=== PATIENT | female | born 1945 | race Caucasian/White ===

== ENCOUNTER 2020-04-05 09:20 | Emergency (ER) | payer OTHER ==
[~2020-04-05] VITALS: Ht 180.3 cm; Wt 64.0 kg
--- NOTE | 2020-04-05 09:24 | NUR ---
PT BIB AMBULANCE AFTER EXPERIENCING EPISODE OF DIZZINESS AND HEART BEATING FAST. MD BEDSIDE.
--- NOTE | 2020-04-05 09:35 | NUR ---
MEDS TRAMADOL 50 MG, 1 TAB 2 TO 3 TIMES DAILY PRN PAIN. CARBAMAZEPINE 300 MG 1 TABLET DAILY.
[2020-04-05 09:50] LABS: BASOPHILS # (AUTO) 0.02 x10^3/uL (0-0.1); BASOPHILS % (AUTO) 1 % (0-1); EOSINOPHILS # (AUTO) 0.01 x10^3/uL (0-0.4); EOSINOPHILS % (AUTO) 0 % (1-7); LYMPHOCYTES # (AUTO) 1.01 x10^3/uL (1-3.4); LYMPHOCYTES % (AUTO) 19 % (22-44); MD NO; MEAN CORPUSCULAR HEMOGLOBIN 31.5 pg (27.0-34.8); MEAN CORPUSCULAR HGB CONC 33.3 g/dL (32.4-35.8); MEAN CORPUSCULAR VOLUME 94.6 fL (80-100); MEAN PLATELET VOLUME 7.4 fL (7.4-10.4); MONOCYTES # (AUTO) 0.67 x10^3/uL (0.2-0.8); MONOCYTES % (AUTO) 13 % (2-9); NEUTROPHILS # (AUTO) 3.55 x10^3/uL (1.8-6.8); NEUTROPHILS % (AUTO) 67 % (42-75); PLATELET COUNT 294 x10^3/uL (130-400); RED CELL DISTRIBUTION WIDTH 13.2 % (9.6-15.2)
[2020-04-05 09:56] LABS: ALANINE AMINOTRANSFERASE 16 U/L (12-78); ANION GAP 8 mmol/L (5-15); CALCIUM 9.3 mg/dL (8.5-10.1); CHLORIDE 101 mmol/L (98-107); CREATININE 0.78 mg/dL (0.55-1.02)
[2020-04-05 10:01] LABS: ALKALINE PHOSPHATASE 83 U/L (45-117); BILIRUBIN,TOTAL 0.6 mg/dL (0.2-1.0); TOTAL PROTEIN 7.1 g/dL (6.4-8.2); TROPONIN I < 0.015 ng/mL (0.000-0.045)
--- NOTE | 2020-04-05 10:26 | NUR ---
PT'S FAMILY REQUESTED EVAL IN THE ER DUE TO INCREASING SYMPTOMS OF DEMENTIA. PT A&O X 4 CURRENTLT. PT EXPERIENCING LOWER BACK PAIN 11/11. PT STATES THIS IS CHRONIC.
--- NOTE | 2020-04-05 10:36 | NUR ---
MEDS ADMINISTED PER OCT. PT RESTING COMFORTABLY AT THIS TIME. DENIES PAIN OR DIZZYNESS.
[2020-04-05 10:38] LABS: MICROSCOPIC INDICATED
[2020-04-05] MEDS ORDERED: POTASSIUM CHLORIDE 20 MEQ TAB.ER.PRT PO ONE (11:00)
[2020-04-05] MEDS ORDERED: POTASSIUM CHLORIDE 20 MEQ TAB.ER.PRT ONE (11:21)
[2020-04-05 11:23] VITALS: BP 134/75
--- NOTE | 2020-04-05 11:37 | NUR ---
MED ADMINISTERED PER THE MAR.
--- NOTE | 2020-04-05 11:37 | NUR ---
PT SITTING UP WITHOUT COMPLAINT. DISCHARGE PAPERS SIGNED.
--- NOTE | 2020-04-05 11:42 | NUR ---
SPOKE WITH DAUGHTER ON PHONE. INFORMED HER OF TEST RESULTS AND SUGGESTED SHE ADDRESS FURTHER CONCERNS WITH PT'S PRIMARY CARE PHYSICIAN. DAUGHTER STATES SHE WILL PICK HER UP FROM ER LOBBY.
== END 2020-04-05 11:44 | disposition home or self-care (01) ==
LOC: ED 10:05
DX: F41.1 Generalized anxiety disorder (principal); R06.4 Hyperventilation; E87.6 Hypokalemia; R00.2 Palpitations; R42 Dizziness and giddiness; R06.02 Shortness of breath
CPT/HCPCS: 36415; 71045; 80053; 80185; 81001; 83735; 84443; 84484; 85025; 87086; 93005; 99285

== ENCOUNTER → 2021-03-21 | Outpatient (CLI) | payer OTHER | END | disposition home or self-care (01) | LOC: RAD 13:32 | PROVIDERS: ATTEND Neurological Surgery | DX: S12.031A Nondisplaced posterior arch fracture of first cervical vertebra, initial encounter for closed fracture (principal); S12.111A Posterior displaced Type II dens fracture, initial encounter for closed fracture; S12.100A Unspecified displaced fracture of second cervical vertebra, initial encounter for closed fracture; M50.30 Other cervical disc degeneration, unspecified cervical region; X58.XXXA Exposure to other specified factors, initial encounter; Y93.89 Activity, other specified; Y92.89 Other specified places as the place of occurrence of the external cause; Y99.8 Other external cause status | CPT/HCPCS: 72125 ==